=== PATIENT | male | born 1980 | race Caucasian/White ===

== ENCOUNTER 2023-07-09 18:43 | Emergency (ER) | payer OTHER, SELFPAY ==
[2023-07-09 18:52] VITALS: BP 124/85; PULSE 95; RESP 16; TEMP 36.3; O2SAT 99
--- NOTE | 2023-07-09 18:57 | ED.SKABFB ---
HPI - Skin/Abscess/Foreign Bdy General Chief complaint: Skin/Abscess/Foreign Body Stated complaint: RASH Time Seen by Provider: 07/09/23 18:57 Source: patient and RN notes reviewed Mode of arrival: ambulatory Limitations: no limitations History of Present Illness HPI narrative: 42-year-old male presents with concern for a itchy, painful rash. Reports he cleared trees couple days ago and then started noticing the rash on the back of his left thigh, it got larger and painful and spread to the right thigh, lower legs and face. Denies trouble breathing, swollen lips, swollen tongue complaint: rash Related Data Allergies Allergy/AdvReac Type Severity Reaction Status Date / Time No Known Allergies Allergy Verified 07/09/23 19:02 Review of Systems Review of Systems: CONSTITUTIONAL: Denies malaise, chills, sweats, or fever. EYES: Denies redness, or discharge. ENT: Denies rhinorrhea, congestion, swollen lips, swollen tongue CARDIOVASCULAR: Denies chest pain, palpitations, or edema. RESPIRATORY: Denies cough or dyspnea. GASTROINTESTINAL: Denies abdominal pain, nausea, vomiting SKIN: Reports rash itchy painful rash on the back of the legs, face MUSCULOSKELETAL: Denies joint pain or myalgia. NEUROLOGIC: Denies headache. All systems reviewed & are unremarkable except as noted in HPI and below PMFSH Comments At time of signature, agree with nursing past medical, surgical, social and family history. There is no relevant family history pertinent to the presenting complaint Exam Narrative: GENERAL: Well-appearing, well-nourished, and in no acute distress. HEAD: Normocephalic, atraumatic. EYES: PERRLA, conjunctivae clear, and EOMI. ENT: Mucous membranes moist. Oropharynx without edema, erythema or lesions. NECK: Supple. No lymphadenopathy CHEST: Clear to auscultation. No respiratory distress. HEART: Regular rate and rhythm. SKIN: Warm, dry. Large Raised Patches of erythema with satellite lesions noted to both posterior thighs, calves, small areas noted to the left face NEURO: Alert and oriented x3. PSYCH: Normal mood and affect Course Course Emergency Course: Patient is aware of diagnosis, understands and agrees to treatment plan. Anticipatory guidance given. Patient agrees to follow-up as directed and is aware of reasons to seek care at the emergency department. Portions of this record may have been created with voice recognition software Level of Care: Express Care Visit Vital Signs Vital signs: Vital Signs Temperature 97.4 F L 07/09/23 18:52 Pulse Rate 95 07/09/23 18:52 Respiratory Rate 16 07/09/23 18:52 Blood Pressure 124/85 07/09/23 18:52 Pulse Oximetry 99 07/09/23 18:52 Temperature 97.4 F L 07/09/23 18:52 Pulse Rate 95 07/09/23 18:52 Respiratory Rate 16 07/09/23 18:52 Blood Pressure 124/85 07/09/23 18:52 Pulse Oximetry 99 07/09/23 18:52 Reviewed. MDM - Skin/Abscess/Foreign Bdy MDM Narrative Medical decision making narrative: Does not appear at this time to be erythema multiforme, bullous, SJS, TEN; no evidence at this time to suggest RMSF, endocarditis or Lyme disease; patient looks well, nontoxic and is tolerating oral intake; no neurologic signs or symptoms; no headache, photophobia or neck pain; afebrile; appropriate for initial outpatient treatment; discussed the importance of follow-up, patient agrees; question, viral exanthema, contact dermatitis, allergic dermatitis, eczema, urticaria. No soft palate or uvula edema, no tongue, lip edema or other mucosal involvement, no respiratory compromise, no stridor, no wheezing, no wheezing, no history of syncope, no hypotension, no nausea, vomiting, or diarrhea. Instructed patient to go to nearest ER immediately for any worsening symptoms including but not limited to: fever, spreading rash, pain, sore throat, headache, dizziness, chest pain, trouble breathing, or any symptoms concerning to the patient. Critical Care Ti
[2023-07-09] MEDS: methylPREDNISolone SOD SUCC 125 MG VIAL IM (19:06)
== END 2023-07-09 19:09 | disposition home or self-care (01) ==
PROVIDERS: Emergency Provider Nurse Practitioner
DX: L25.9 Unspecified contact dermatitis, unspecified cause (principal)
CPT/HCPCS: 96372; 99213; G0463; J2919

== ENCOUNTER 2023-07-18 13:43 | Emergency (ER) | payer OTHER, SELFPAY ==
[2023-07-18 13:52] VITALS: BP 137/90; PULSE 102; RESP 16; TEMP 36.9; O2SAT 98
--- NOTE | 2023-07-18 14:03 | ED.SKABFB ---
HPI - Skin/Abscess/Foreign Bdy General Chief complaint: Skin/Abscess/Foreign Body Stated complaint: Rash on Eye Time Seen by Provider: 07/18/23 13:56 Source: patient, RN notes reviewed and old records reviewed Mode of arrival: ambulatory Limitations: no limitations History of Present Illness HPI narrative: Patient presents today complaining of poison alexa times 4-5 days. Patient was initially seen here at [facility] on 07/09/2023 and treated with 4 days of prednisone 40 mg. States symptoms initially improved, but worsened again. Symptoms have progressively worsened on the the bilateral legs and have become hot. Patient also reports swelling to the left upper eyelid this morning. States he typically needs a longer course of prednisone when he gets poison alexa. Related Data Allergies Allergy/AdvReac Type Severity Reaction Status Date / Time No Known Allergies Allergy Verified 07/18/23 13:51 Review of Systems Review of Systems: CONSTITUTIONAL: Denies body aches, fever, chills, or sweats. EYES: Denies visual changes, redness, or discharge. ENT: Denies rhinorrhea, congestion, sore throat, or otalgia. CARDIOVASCULAR: Denies chest pain, palpitations, or edema. RESPIRATORY: Denies cough or dyspnea. GASTROINTESTINAL: Denies abdominal pain, nausea, vomiting, or diarrhea. GENITOURINARY: Denies dysuria or hematuria. SKIN: + rash MUSCULOSKELETAL: Denies back pain, joint pain, or myalgia. NEUROLOGIC: Denies headache, numbness, tingling, or weakness. PSYCH: Denies depression or anxiety. PMFSH Comments At time of signature, I have reviewed and agree with nursing past medical, surgical, social and family history unless otherwise noted. Please see nursing chart for further information. There is no relevant family history pertinent to the presenting complaint Exam Narrative: GENERAL: Well-appearing, well-nourished, and in no acute distress. HEAD: Normocephalic, atraumatic. EYES: EOMI. No redness or drainage. Conjunctivae normal. Mild to moderate swelling of the left upper eyelid with mild erythema and flaking of the skin. ENT: Mucous membranes pink and moist. NECK: Normal AROM. CHEST: No respiratory distress. EXTREMITIES: Patient has large patches erythematous coalesced macular papular rash to the bilateral legs with increased warmth. No large vesicles or drainage. No obvious induration noted. Patient does have some swelling to the left lower leg SKIN: Capillary refill normal. Normal skin turgor. NEURO: No focal deficits. Alert and oriented x3. Gait steady. PSYCH: Normal affect. No signs of depression or anxiety. Course Course Level of Care: Express Care Visit Vital Signs Vital signs: Vital Signs Temperature 98.4 F 07/18/23 13:52 Pulse Rate 102 H 07/18/23 13:52 Respiratory Rate 16 07/18/23 13:52 Blood Pressure 137/90 07/18/23 13:52 Pulse Oximetry 98 07/18/23 13:52 Oxygen Delivery Room Air 07/18/23 13:52 Temperature 98.4 F 07/18/23 13:52 Pulse Rate 102 H 07/18/23 13:52 Respiratory Rate 16 07/18/23 13:52 Blood Pressure 137/90 07/18/23 13:52 Pulse Oximetry 98 07/18/23 13:52 Oxygen Delivery Room Air 07/18/23 13:52 Reviewed MDM - Skin/Abscess/Foreign Bdy MDM Narrative Medical decision making narrative: Patient was given an IM injection of decadron prior to discharge. Patient will be treated with a longer tapering dose of prednisone, starting tomorrow, as well as short course of Keflex to cover any developing cellulitis. Anticipatory guidance given. Differential Diagnosis Differential diagnosis: Likely abscess of skin or subcutaneous tissue, cellulitis, eczema, insect bites, impetigo and contact dermatitis Critical Care Time Critical Care Time Critical Care Time: No Discharge Plan Discharge Clinical Impression: Poison alexa dermatitis Patient Disposition: Home, Self-Care Condition: Stable Instructions: Antibiotic Form, Poison Alexa (ED) Addition
[2023-07-18] MEDS: dexAMETHasone SOD PHOS INJ 10 MG/ML 1 ML VIAL 12 MG IM (14:07)
== END 2023-07-18 14:20 | disposition home or self-care (01) ==
PROVIDERS: Emergency Provider Nurse Practitioner
DX: L23.7 Allergic contact dermatitis due to plants, except food (principal)
CPT/HCPCS: 96372; 99213; G0463; J1100

== ENCOUNTER 2024-02-29 09:25 | Day surgery (SDC) | payer OTHER, SELFPAY ==
[2024-01-11 07:37] VITALS: BMI 34.7
[2024-02-14 11:56] VITALS: BMI 34.5
--- NOTE | 2024-02-29 07:00 | P.PNAN_ITS ---
Anes - Initial Pre Proc Eval Procedure: Operation Date: 02/29/24 12:00 Proposed Procedures p Esophagogastroduodenoscopy - Jose Elizalde MD s Diagnostic Colonoscopy - Jose Elizalde MD Date/Time: 02/29/24 07:00 Surgeon: Jose Elizalde MD Pre Op Diagnosis: FM HX of Colon CA, Gerd w/o Esophagitis Patient Data Age: 43 Gender: M Height: 1.7 m Weight: 100 kg Allergies Allergy/AdvReac Type Severity Reaction Status Date / Time No Known Allergies Allergy Verified 02/29/24 10:42 Home Medications Medication Instructions Recorded Confirmed Type trazodone 50 mg tablet 50 mg PO QHS PRN insomnia #30 tabs 01/02/24 02/29/24 Rx propranolol 10 mg tablet See Rx Instructions .Route 01/03/24 02/29/24 Rx .COMPLEX #90 tabs atorvastatin 10 mg tablet 10 mg PO DAILY #30 tabs 01/04/24 02/29/24 Rx creatine monohydrate 5,000 mg oral 5,000 mg PO DAILY 02/14/24 02/29/24 History powder packet testosterone 100 mg/mL 100 mg IM 2XW 02/14/24 02/29/24 History intramuscular suspension semaglutide (weight loss) 0.5 0.5 mg subcut WEEKLY 02/29/24 02/29/24 History mg/0.5 mL subcutaneous pen injector Patient hx anesthesia problems: none Family hx anesthesia problems: none Results Review: All pre-operative results and documents have been reviewed as part of the pre- operative evaluation. [facility] Past Medical History Medical History (Updated 02/29/24 @ 07:00 by Ramesh Malave DO) GERD (gastroesophageal reflux disease) Hyperlipidemia Social History Social History Smoking status: Current every day smoker Tobacco type: e-cigarettes/vaping Alcohol intake: current Drinks per week: 5 Substance use type: does not use Living arrangements: alone Spiritual care concerns: No Anes - Eval Final PreProcedure Day of Procedure 02/29/24 07:00 Patient weight: obese Heart: regular rate and rhythm Lungs: clear to auscultation Airway: Mallampati scale class II Neurological: alert and oriented Last oral intake: >/= 8 hours ASA classification: II Emergent: no Anesthetic plan: proceed Anesthesia type and monitoring: general GIVS and standard monitoring Results Review: All pre-operative results and documents have been reviewed as part of the pre- operative evaluation. Informed Consent: The patient's anesthetic plan and its attendant risks and benefits were discussed with the patient/family/POA. Questions were solicited and answers provided to the satisfaction of the patient/family/POA.
[2024-02-29 10:43] VITALS: BP 127/89; PULSE 106; RESP 16; TEMP 37.5; O2SAT 99
[2024-02-29] MEDS: LACTATED RINGERS 1,000 ML 150 ML IV CONT (10:46)
--- NOTE | 2024-02-29 11:38 | P.HP_ITS ---
History of Present Illness History of Present Illness Consent: Risks, benefits, and alternatives have been discussed and questions answered. Patient agrees to proceed with procedure. Chief complaint: FM HX of Colon CA, Gerd w/o Esophagitis Narrative: Anish Young is a 43 year old male for colonoscopy today. Patient also referred for EGD. Patient has a 6 month history of side pain at the lower edge of rib cage, this is not related to diet. He sometimes has urgent bowel movements after eating. He has not tried antacids. Was requested because of family history of colon cancer in his mother. Patient apparently referred for GE reflux but denies any heartburn or reflux symptoms. He has not tried antacids. No symptoms seem to correlate with this. Review of records revealed genetic markers positive that sometimes are elevated with celiac disease. H owever also noted to be in 30% of normal patients. Patient has never had typical celiac panel. He has been on an intermittent it is being gluten several weeks. Patient is be and EGD but prefers to defer endoscopy until more definitive diagnosis can be established. Review of Systems Review of Systems: All systems reviewed & are unremarkable except as noted in HPI and below PMFSH Past Medical History Medical History (Updated 02/29/24 @ 11:42 by Jose Elizalde MD) GERD (gastroesophageal reflux disease) Hyperlipidemia Social History Social History Smoking status: Current every day smoker Tobacco type: e-cigarettes/vaping Alcohol intake: current Drinks per week: 5 Substance use type: does not use Living arrangements: alone Spiritual care concerns: No Meds Home Medications and Allergies Home Medications Medication Instructions Recorded Confirmed Type trazodone 50 mg tablet 50 mg PO QHS PRN insomnia #30 tabs 01/02/24 02/29/24 Rx propranolol 10 mg tablet See Rx Instructions .Route 01/03/24 02/29/24 Rx .COMPLEX #90 tabs atorvastatin 10 mg tablet 10 mg PO DAILY #30 tabs 01/04/24 02/29/24 Rx creatine monohydrate 5,000 mg oral 5,000 mg PO DAILY 02/14/24 02/29/24 History powder packet testosterone 100 mg/mL 100 mg IM 2XW 02/14/24 02/29/24 History intramuscular suspension semaglutide (weight loss) 0.5 0.5 mg subcut WEEKLY 02/29/24 02/29/24 History mg/0.5 mL subcutaneous pen injector Allergies Allergy/AdvReac Type Severity Reaction Status Date / Time No Known Allergies Allergy Verified 02/29/24 10:42 Vital Signs Vital Signs - 24 hr 02/29/24 10:43 Temperature 99.5 F Pulse Rate 106 H Respiratory Rate 16 Blood Pressure 127/89 Pulse Oximetry 99 Oxygen Delivery Room Air Exam Narrative: Physical exam reveals patient to be alert. Vital signs stable. HEENT exam is unremarkable. Patient is anicteric. Lungs are clear to auscultation and percussion. Heart is without murmur or extra sounds. Abdomen bowel sounds are present soft nontender with no organomegaly. Patient locates the pain to the lower edge of his ribcage. No tenderness or mass noted in this area. Extremities are without clubbing cyanosis or edema. Digital external rectal exam normal. Assessment and Plan Assessment and plan (1) Family history of colon cancer: Code(s): Z80.0 - Family history of malignant neoplasm of digestive organs Status: Acute Assessment and Plan: Patient's mother had colon cancer. Suggest screening colonoscopy at this time. Consider this at 5 year intervals. (2) Left sided abdominal pain: Code(s): R10.9 - Unspecified abdominal pain Status: Acute Assessment and Plan: Patient with side at the lower edge her ribcage. I cannot Exclude whether this is abdominal or chest pain. Patient has no specific symptoms of acid reflux. Consider a brief trial of antacids for this. There was some concern over celiac disease as genetic test was found to be positive all this is not diagnostic is frequently found normal patient's. I would recommend the patient be referred to the GI office. After eating in resuming a general normal diet celiac panel to include anti gliadin antibody and anti tTG antibody be performed. Follow-up EGD can be performed while on a regular diet, including gluten, because at that instance it would be more accurate to diagnose whether this truly is celiac disease. After a long discussion with the patient both he and I had decided to defer EGD , an d to follow-up in the GI office for further evaluation (3) Diarrhea: Code(s): R19.7 - Diarrhea, unspecified Status: Acute Assessment and Plan: Patient complains of diarrhea it urgently after eating. This is most suspicious for irritable bowel syndrome. As I am suggesting a regular diet we will ask patient to try fiber supplementation. Patient should follow-up in the GI office for further evaluation of left-sided abdominal pain and diarrhea. at that time, celiac disease can be more definitively be excluded, or included.
--- NOTE | 2024-02-29 12:48 | WPDANESPN ---
Anes - Prog Note Post-Op Date/Time: 02/29/24 12:48 Cardiovascular status: normal Respiratory status: normal Airway patency: baseline Mental status: baseline Post-Op hydration status: normal Vital Signs: Last Vital Signs Temp 37.5 C 02/29/24 10:43 Pulse 106 H 02/29/24 10:43 Resp 16 02/29/24 10:43 BP 127/89 02/29/24 10:43 Pulse Ox 99 02/29/24 10:43 O2 Del Method Room Air 02/29/24 10:43 Pain Score (VAS): 0 Post-procedural complaints: none Patient Feedback: Patient satisfied with anesthetic care. Other Findings: Patient vital signs back to baseline. Patient denies nausea and vomiting. Patient's pain under control. Patient OK for discharge.
[2024-02-29 13:07] VITALS: BP 133/88; PULSE 84; RESP 15; O2SAT 97
[2024-02-29 13:17] VITALS: BP 106/88; PULSE 97; RESP 17; O2SAT 99
[2024-02-29 13:27] VITALS: BP 124/96; PULSE 73; RESP 18; O2SAT 100
== END 2024-02-29 13:38 | disposition home or self-care (01) ==
PROVIDERS: PCP Family Medicine; Visit Provider Internal Medicine Gastroenterology
PROC: 0DJD8ZZ Inspection of Lower Intestinal Tract, Via Natural or Artificial Opening Endoscopic (ICD-10-PCS; CPT 45378; 2024-02-29 12:00)
DX: Z80.0 Family history of malignant neoplasm of digestive organs (principal); K64.8 Other hemorrhoids
CPT/HCPCS: 45378

== ENCOUNTER 2024-05-04 09:46 | Emergency (ER) | payer OTHER, SELFPAY ==
--- NOTE | ~2024-05-04 | CT_ITS ---
EXAMINATION: CT abdomen pelvis wo con DATE: 05/04/2024 12:43 INDICATION: Right sided renal stone presenting with right flank pain. TECHNIQUE: Computed tomography (CT) of the abdomen and pelvis was performed without intravenous contr ast. Automated exposure control and iterative reconstruction technique were employed. The dose-length product was 596.86 mGy-cm. COMPARISON: None FINDINGS: Lung bases are clear. Heart size is normal. No pericardial or pleural effusion. Liver, gallbladder, s pleen, pancreas, bilateral adrenal glands are normal. One-2 mm stone at the right ureterovesicular ju nction. Bilateral kidneys and ureters are otherwise unremarkable with no other urolithiasis or hydron ephrosis. Bladder is decompressed. Bowels including the appendix are normal. No free intraperitoneal gas or fluid. No pathologically enlarged abdominal or pelvic lymphadenopathy. Minimal to mild scatter ed degenerative skeletal changes in the spine and pelvis. IMPRESSION: 1. Nonobstructing 1-2 mm stone at the right ureterovesicular junction. Reviewed, dictated and finalized at location B. SSEMBLY ASSEMBLER
[2024-05-04 10:03] VITALS: BP 147/100; PULSE 86; RESP 14; TEMP 36.5; O2SAT 100
--- OUTSIDE RECORDS SUMMARY | 2024-05-04 10:32 | XMS_ITS | Clinical Summary ---
Author Organization [facility] [id number] [place] Address [address] [place] [id number] Care Team Providers Care Assistant Project Manager Name Role Phone Jose Alvarado DO Primary Care Provider Allergies No known active allergies Medications propranoloL (INDERAL) 10 mg tablet TAKE 1-2 TABLETS BY MOUTH 1 HOUR BEFORE EVENT NEEDED. MAX 2 TABLETS PER DAY. 4 Active atorvastatin (LIPITOR) 10 mg tablet 4 Active metroNIDAZOLE (FLAGYL) 500 mg tablet Take 1 tablet (500 mg total) by mouth every 12 (twelve) hours for 7 days 4 Active sodium, potassium & mag sulfates (SUPREP BOWEL KIT) 17.5-3.13-1.6 gram recon soln MIX AND DRINK DIRECTED PER THE WRITTEN INSTRUCTIONS THAT WERE MAILED TO YOU 4 Active tamsulosin (FLOMAX) 0.4 mg extended release capsuleIndicati ons:Right flank pain Take 1 capsule (0.4 mg total) by mouth daily 30 capsule 5 Active ketorolac (TORADOL) 10 mg tabletIndicatio ns:Right flank pain Take 1 tablet (10 mg total) by mouth every 6 (six) hours as needed for pain 20 tablet 5 Active Active Problems No known active problems Encounters Date Type Department Care Team Description 05/03/2024 4:15 PM OPERATIONS LEAD - 05/03/2024 11:59 PM OPERATIONS LEAD Hospital Encounter [address] [id number] Right flank pain Discharge Disposition: Discharge to home or self care 05/03/2024 3:45 PM OPERATIONS LEAD Office Visit [facility] at [address] [phone] Lisandra Figueroa, CD MIXER HELPER Right flank pain (Primary Dx) from Last 3 Months Social History Tobacco Use Types Packs/Day Years Used Date Smoking Tobacco: Never Assessed Sex and Gender Information Value Date Recorded Sex Assigned at Not on file Legal Sex Male 2:30 PM CDT Gender Identity Not on file Sexual Orientation Not on file Last Filed Vital Signs Vital Sign Reading Time Taken Comments Blood Pressure 139/96 05/03/2024 3:26 PM OPERATIONS LEAD Pulse 87 05/03/2024 3:26 PM OPERATIONS LEAD Temperature 36.9 C (98.5 F) 05/03/2024 3:26 PM OPERATIONS LEAD Respiratory Rate 16 05/03/2024 3:26 PM OPERATIONS LEAD Oxygen Saturation 96% 05/03/2024 3:26 PM OPERATIONS LEAD Inhaled Oxygen Concentration - - Weight 101.2 kg (223 lb) 05/03/2024 3:26 PM OPERATIONS LEAD Height 170.2 cm (5' 7 ) 05/03/2024 3:26 PM OPERATIONS LEAD Body Mass Index 34.93 05/03/2024 3:26 PM OPERATIONS LEAD Plan of Treatment Health Maintenance Due Date Last Done Comments Depression Screening 1981 Hepatitis C Screening 1981 DTaP/Tdap/Td Vaccine (1 - Tdap) 1992 Varicella Vaccines (1 of 2 - 13+ 2-dose series) 1994 Hepatitis B Screening 09/09/1999 Regular Well Visit/Exam 18-64 09/09/1999 Influenza Vaccine (#1) 2023 HPV Vaccines Aged Out No longer eligi ble based on patient's age to complete this topic Pneumococcal vaccine <65 Aged Out No longer eligible based on patient's age to complete this topic Procedures Procedure Name Priority Date/Time Associated Diagnosis Comments POCT URINALYSIS DIPSTICK Routine 05/03/2024 3:47 PM OPERATIONS LEAD Right flank pain from Last 3 Months Results * (ABNORMAL) POCT urinalysis dipstick (05/03/2024 3:47 PM OPERATIONS LEAD) Color, Urine, POC Yellow Clarity, ur, POC Clear Clear Glucose, ur, POC 100.(A) Negative MG/DL Bilirubin, ur, POC Small Negative, Small, Moderate, Large Ketones, ur, POC Negative Negative Specific [place], POC 1.030 1.003 - 1.030 Blood, ur, POC Large(A) Negative pH, ur, POC 5.5 5.0 - 8.0 Protein, ur, POC 100.(A) Negative Urobilinogen, urine, POC 0.2 0.2 - 1.0 mg/dL Nitrite, ur, POC Negative Negative Leukocytes, ur, POC Negative Negative Lot Number 0 Urine 05/03/2024 3:47 PM OPERATIONS LEAD Lisandra Figueroa CD MIXER HELPER POINT OF CARE TEST ORDERAB LES Final Result from Last 3 Months Insurance [facility] Care Teams Assistant Project Manager Relationship Specialty Start Date End Date Jose Alvarado DO [address] [place] [id number] PCP - General Family Medicine 05/03/24
--- OUTSIDE RECORDS SUMMARY | 2024-05-04 10:32 | XMS_ITS | Encounter Summary ---
Author Organization [facility] Address [address] [place] [id number] Care Team Providers Care Production Supply Equipment Tender Name Role Phone Jose Alvarado DO Primary Care Provider Encounter Details Date Type Department Care Team (Latest Contact Info) Description 05/03/2024 4:15 PM ARCHITECTURAL ENGINEERING TEACHER - 05/03/2024 11:59 PM ARCHITECTURAL ENGINEERING TEACHER Hospital Encounter [facility] [id number] [place] [id number] Right flank pain Discharge Disposition: Discharge to home or self care Social History Tobacco Use Types Packs/Day Years Used Date Smoking Tobacco: Never Assessed Sex and Gender Information Value Date Recorded Sex Assigned at Not on file Legal Sex Male 2:30 PM CDT Gender Identity Not on file Sexual Orientation Not on file documented as of this encounter Medications at Time of Discharge atorvastatin (LIPITOR) 10 mg tablet 03/23/2024 ketorolac (TORADOL) 10 mg tabletIndication s:Right flank pain Take 1 tablet (10 mg total) by mouth every 6 (six) hours as needed for pain 20 tablet 05/03/2024 metroNIDAZOLE (FLAGYL) 500 mg tablet Take 1 tablet (500 mg total) by mouth every 12 (twelve) hours for 7 days 02/01/2024 propranoloL (INDERAL) 10 mg tablet TAKE 1-2 TABLETS BY MOUTH 1 HOUR BEFORE EVENT NEEDED. MAX 2 TABLETS PER DAY. 09/10/2023 sodium, potassium & mag sulfates (SUPREP BOWEL KIT) 17.5-3.13-1.6 gram recon soln MIX AND DRINK DIRECTED PER THE WRITTEN INSTRUCTIONS THAT WERE MAILED TO YOU 02/04/2024 tamsulosin (FLOMAX) 0.4 mg extended release capsuleIndicatio ns:Right flank pain Take 1 capsule (0.4 mg total) by mouth daily 30 capsule 05/03/2024 documented as of this encounter Discharge Disposition Disposition Code Departure Means Destination Discharge to home or self care documented in this encounter Plan of Treatment Pending Results Name Type Priority Associated Diagnoses Date /Time Urine culture Urine, clean voided Microbiology Routine Right flank pain 05/03/2024 4:16 PM ARCHITECTURAL ENGINEERING TEACHER Scheduled Orders Name Type Priority Associated Diagnoses Orde r Schedule Urine culture Urine, clean voided Microbiology Routine Right flank pain Once for 1 Occurrences starting 05/03/2024 until 05/03/2024 documented as of this encounter Visit Diagnoses Diagnosis Right flank pain Abdominal pain, unspecified site documented in this encounter Care Teams Production Supply Equipment Tender Relationship Specialty Start Date End Date Jose Alvarado DO [address] [place] [id number] PCP - General Family Medicine 05/03/24 documented as of this encounter
--- OUTSIDE RECORDS SUMMARY | 2024-05-04 10:32 | XMS_ITS | Referral Summary ---
Author Organization [address] [address] Care Team Providers Care Regulatory Compliance Engineer Name Role Phone Jose Alvarado DO Primary Care Provider Encounters Date Type Department Care Team Description 05/03/2024 4:15 PM TELETYPESETTER OPERATOR - 05/03/2024 11:59 PM TELETYPESETTER OPERATOR Hospital Encounter [address] [address] Right flank pain Discharge Disposition: Discharge to home or self care 05/03/2024 3:45 PM TELETYPESETTER OPERATOR Office Visit [facility] Care at [address] [address] Lisandra Figueroa, LEILA Right flank pain (Primary Dx) from Last 3 Months Allergies No known active allergies Medications propranoloL [...] hours as needed for pain 20 tablet Active Active Problems No known active problems Social History Tobacco Use Types Packs/Day Years Used Date Smoking Tobacco: Never Assessed Sex and Gender Information Value Date Recorded Sex Assigned at Not on file Legal Sex Male 2:30 PM CDT Gender Identity Not on file Sexual Orientation Not on file Last Filed Vital Signs Vital Sign Reading Time Taken Comments Blood Pressure 139/96 05/03/2024 3:26 PM TELETYPESETTER OPERATOR Pulse 87 05/03/2024 3:26 PM TELETYPESETTER OPERATOR Temperature 36.9 C (98.5 F) 05/03/2024 3:26 PM TELETYPESETTER OPERATOR Respiratory Rate 16 05/03/2024 3:26 PM TELETYPESETTER OPERATOR Oxygen Saturation 96% 05/03/2024 3:26 PM TELETYPESETTER OPERATOR Inhaled Oxygen Concentration - - Weight 101.2 kg (223 lb) 05/03/2024 3:26 PM TELETYPESETTER OPERATOR Height 170.2 cm (5' 7 ) 05/03/2024 3:26 PM TELETYPESETTER OPERATOR Body Mass Index 34.93 05/03/2024 3:26 PM TELETYPESETTER OPERATOR Plan of Treatment Not on file Procedures Procedure Name Priority Date/Time Associated Diagnosis Comments POCT URINALYSIS DIPSTICK Routine 05/03/2024 3:47 PM TELETYPESETTER OPERATOR Right flank pain from Last 3 Months Results * (ABNORMAL) POCT urinalysis dipstick (05/03/2024 3:47 PM TELETYPESETTER OPERATOR) Color, Urine, POC Yellow Clarity, ur, POC Clear Clear Glucose, ur, POC 100.(A) Negative MG/DL Bilirubin, ur, POC Small Negative, Small, Moderate, Large Ketones, ur, POC Negative Negative Specific [place], POC 1.030 1.003 - 1.030 Blood, ur, POC Large(A) Negative pH, ur, POC 5.5 5.0 - 8.0 Protein, ur, POC 100.(A) Negative Urobilinogen, urine, POC 0.2 0.2 - 1.0 mg/dL Nitrite, ur, POC Negative Negative Leukocytes, ur, POC Negative Negative Lot Number 0 Urine 05/03/2024 3:47 PM TELETYPESETTER OPERATOR Lisandra Figueroa ELECTRONICS PRODUCTION SUPERVISOR POINT OF CARE TEST ORDERAB LES Final Result from Last 3 Months Insurance [employer] [facility] HMO Care Teams Regulatory Compliance Engineer Relationship Specialty Start Date End Date Jose Alvarado DO [address] [place] [id number] PCP - General Family Medicine 05/03/24
--- OUTSIDE RECORDS SUMMARY | 2024-05-04 10:32 | XMS_ITS | Encounter Summary ---
Author Organization [facility] Healthcare Address [address] [place] [address] Care Team Providers Care Supervisor Estimator And Drafter Name Role Phone Jose Alvarado DO Primary Care Provider [phone] Reason for Visit * Reason Comments Flank Pain Patient there for c/ o right kidney pain that started today with UTI sx Encounter Details Date Type Department Care Team (Late st Contact Info) Description 05/03/2024 3:45 PM SHUTTLE OPERATOR Office Visit [facility] at [place] [id number] [place] [address] Lisandra Figueroa, SEWER INSPECTOR [address] [place] [address] [address] [place] [address] Right flank pain (Primary Dx) Social History Tobacco Use Types Packs/Day Years Used Date Smoking Tobacco: Never Assessed Sex and Gender Information Value Date Recorded Sex Assigned at Not on file Legal Sex Male 2:30 PM CDT Gender Identity Not on file Sexual Orientation Not on file documented as of this encounter Last Filed Vital Signs Vital Sign Reading Time Taken Comments Blood Pressure 139/96 05/03/2024 3:26 PM SHUTTLE OPERATOR Pulse 87 05/03/2024 3:26 PM SHUTTLE OPERATOR Temperature 36.9 C (98.5 F) 05/03/2024 3:26 PM SHUTTLE OPERATOR Respiratory Rate 16 05/03/2024 3:26 PM SHUTTLE OPERATOR Oxygen Saturation 96% 05/03/2024 3:26 PM SHUTTLE OPERATOR Inhaled Oxygen Concentration - - Weight 101.2 kg (223 lb) 05/03/2024 3:26 PM SHUTTLE OPERATOR Height 170.2 cm (5' 7 ) 05/03/2024 3:26 PM SHUTTLE OPERATOR Body Mass Index 34.93 05/03/2024 3:26 PM SHUTTLE OPERATOR documented in this encounter Patient Instructions * Patient Instructions* Lisandra Figueroa NP - 05/03/2024 3:45 PM SHUTTLE OPERATOR If you have no improvement or worsening of your symptoms, please follow up with your Primary Care Provider, Convenient Care and or Emergency Room. I strive to provide you with EXCELLENT service. You may receive a survey after your visit today. If you cannot rate your experience as EXCELLENT, please let us know how we can improve and better meet your needs. Thank you for choosing [facility]! It was my pleasure to see you today, I hope you feel better soon! Lisandra Figueroa DRAG CAR RACER TLE OPERATOR * Attachments The following attachments cannot be sent through Care Everywhere. * Flank Pain (AfterCare(R) Instructions(ER/ED)) (Martiniquais) * Kidney Stones (AfterCare(R) Instructions(ER/ED)) (Martiniquais) documented in this encounter Ordered Prescriptions Prescription Sig Dispense Quantity Refills Last Filled Start Date End Date ketorolac (TORADOL) 10 mg tabletIndications: Right flank pain Take 1 tablet (10 mg total) by mouth every 6 (six) hours as needed for pain 20 tablet 05/03/2024 tamsulosin (FLOMAX) 0.4 mg extended release capsuleIndications :Right flank pain Take 1 capsule (0.4 mg total) by mouth daily 30 capsule 05/03/2024 documented in this encounter Plan of Treatment Pending Results Name Type Priority Associated Diagnoses Date /Time Urine culture Urine, clean voided Microbiology Routine Right flank pain 05/03/2024 4:16 PM SHUTTLE OPERATOR Scheduled Orders Name Type Priority Associated Diagnoses Orde r Schedule Urine culture Urine, clean voided Microbiology Routine Right flank pain Expected: 05/03/2024, Expires: 05/03/2025 documented as of this encounter Procedures Procedure Name Priority Date/Time Associated Diagnosis Comments POCT URINALYSIS DIPSTICK Routine 05/03/2024 3:47 PM SHUTTLE OPERATOR Right flank pain documented in this encounter Results * (ABNORMAL) POCT urinalysis dipstick (05/03/2024 3:47 PM SHUTTLE OPERATOR) Color, Urine, POC Yellow Clarity, ur, POC Clear Clear Glucose, ur, POC 100.(A) Negative MG/DL Bilirubin, ur, POC Small Negative, Small, Moderate, Large Ketones, ur, POC Negative Negative Specific [place], POC 1.030 1.003 - 1.030 Blood, ur, POC Large(A) Negative pH, ur, POC 5.5 5.0 - 8.0 Protein, ur, POC 100.(A) Negative Urobilinogen, urine, POC 0.2 0.2 - 1.0 mg/dL Nitrite, ur, POC Negative Negative Leukocytes, ur, POC Negative Negative Lot Number 0 Urine 05/03/2024 3:47 PM SHUTTLE OPERATOR Lisandra Figueroa SEWER INSPECTOR POINT OF CARE TEST ORDERAB LES Final Result documented in this encounter Visit Diagnoses Diagnosis Right flank pain- Primary Abdominal pain, unspecified site documented in this encounter Historical Medications * This list may reflect changes made after this encounter. sodium, potassium & mag sulfates (SUPREP BOWEL KIT) 17.5-3.13-1.6 gram recon soln MIX AND DRINK DIRECTED PER THE WRITTEN INSTRUCTIONS THAT WERE MAILED TO YOU 02/04/2024 metroNIDAZOLE (FLAGYL) 500 mg tablet Take 1 tablet (500 mg total) by mouth every 12 (twelve) hours for 7 days 02/01/2024 atorvastatin (LIPITOR) 10 mg tablet 03/23/2024 added in this encounter Care Teams Supervisor Estimator And Drafter Relationship Specialty Start Date End Date Jose Alvarado DO [address] [place] [id number] PCP - General Family Medicine 05/03/24 documented as of this encounter
[2024-05-04 11:32] LABS: Basophils Absolute Auto 0.1 K/mm3 (0.0-0.1); Basophils Percent Auto 1.1 % (0.2-1.2); Eosinophils Absolute Auto 0.5 K/mm3 (0-0.3); Eosinophils Percent Auto 9.1 % (0-4.4); Hematocrit 49.3 % (42.0-52.0); Hemoglobin 16.6 g/dL (14.0-18.0); Immature Granulocyte Absolute 0.02 K/mm3 (0.00-0.031); Immature Granulocyte Percent A 0.4 % (0-0.5); Lymphocytes Absolute Auto 1.64 K/mm3 (0.9-3.2); Lymphocytes Percent Auto 30.5 % (18.3-44.2); Mean Corpuscular HGB Conc 33.7 g/dl (32-36); Mean Corpuscular Hemoglobin 30.5 pg (26-34); Mean Corpuscular Volume 90.5 fl (80-100); Monocytes Absolute Auto 0.7 K/mm3 (0.1-0.6); Monocytes Percent Auto 13.4 % (2.6-8.5); Neutrophils Absolute Auto 2.4 K/mm3 (1.3-6.7); Neutrophils Percent Auto 45.5 % (45.5-73.1); Platelet Count Result 245 k/mm3 (150-375); Red Blood Count 5.45 M/mm3 (4.6-6.20); Red Cell Distribution Width 13.1 % (11.5-14.5); White Blood Count 5.4 K/mm3 (4.5-10.0)
[2024-05-04 11:48] LABS: Alanine Aminotransferase 51 U/L (6-50); Alkaline Phosphatase 66 U/L (38-126); Anion Gap 10 mmol/L (4-12); Aspartate Amino Transferase 35 U/L (17-59); Bilirubin,Total 0.7 mg/dL (0.2-1.3); Blood Urea Nitrogen 17 mg/dL (9-20); Calcium 8.6 mg/dL (8.4-10.2); Carbon Dioxide 25 mmol/L (22-30); Chloride 107 mmol/L (98-107); Estimated Glomerular Filt Rate > 60; Glucose 94 mg/dL (65-110); Potassium 4.2 mmol/L (3.4-5.0); Sodium 142 mmol/L (137-145)
[2024-05-04 11:53] VITALS: BP 138/92; PULSE 92; RESP 18; O2SAT 97
[2024-05-04 12:00] VITALS: O2SAT 98
[2024-05-04 12:01] VITALS: BP 141/102; PULSE 80; RESP 18; O2SAT 98
--- NOTE | 2024-05-04 12:21 | ED.MALEGU ---
HPI - Male Genitourinary General Chief complaint: Urogenital-Male Stated complaint: R flank pain Time Seen by Provider: 05/04/24 12:00 History of Present Illness HPI Narrative: 43-year-old otherwise healthy gentleman presenting to the emergency room with right-sided flank pain that began yesterday morning. He would urgent care and received Toradol and had a urine sample did show blood with suspected for a kidney stone. He went home with Toradol and had immediate improvement symptoms however had relapse throughout the night unresponsive to his Toradol. He had some leftover [place] at home without alleviated the pain. Endorses waves of pain in his right flank associated with nausea from the pain. No fever chills but does endorse some urinary symptoms including burning radiation but was told he did not have a urine infection yesterday. No history of kidney stones, no family history of kidney stones. No prostatic issues, no urogenital surgeries. Related Data Home Medications ?Medication ?Instructions ?Recorded ?Confirmed ?Last Taken ?Type creatine monohydrate 5,000 mg oral 5,000 mg PO DAILY 02/14/24 02/29/24 Unknown History powder packet testosterone 100 mg/mL 100 mg IM 2XW 02/14/24 02/29/24 Unknown History intramuscular suspension semaglutide (weight loss) 0.5 0.5 mg subcut WEEKLY 02/29/24 02/29/24 Unknown History mg/0.5 mL subcutaneous pen injector Allergies Allergy/AdvReac Type Severity Reaction Status Date / Time No Known Allergies Allergy Verified 02/29/24 10:42 Review of Systems Review of Systems: As reviewed above in HPI [facility] Past Medical History Medical History (Updated 05/04/24 @ 13:14 by Tye Prather MD) GERD (gastroesophageal reflux disease) Hyperlipidemia Social History Social History Smoking status: Current every day smoker Tobacco type: e-cigarettes/vaping Alcohol intake: current Drinks per week: 5 Substance use type: does not use Living arrangements: alone Spiritual care concerns: No Exam Narrative: GENERAL: [Well-appearing, well-nourished, and in no acute distress.] HEAD: [Normocephalic, atraumatic.] EYES: [PERRLA and EOMI.] ENT: Nares clear, no rhinorrhea or epistaxis. Mucous membranes moist. NECK: Supple. CHEST: [Clear to auscultation. No respiratory distress.] HEART: [Regular rate and rhythm]. No murmur heard. [Normal peripheral pulses.] ABDOMEN: [Soft, nondistended], [nontender], [No rigidity or guarding] EXTREMITIES: Normal range of motion. [No edema.] SKIN: Warm, dry, no rash. NEURO: [No focal deficits]. Alert and oriented [x3.] PSYCH: [Normal mood and affect.] Course Vital Signs Vital signs: Vital Signs Temperature 36.5 C 05/04/24 10:03 Pulse Rate 86 05/04/24 10:03 Respiratory Rate 14 05/04/24 10:03 Blood Pressure 147/100 H 05/04/24 10:03 Pulse Oximetry 100 05/04/24 10:03 Temperature 36.5 C 05/04/24 10:03 Pulse Rate 80 05/04/24 12:01 Respiratory Rate 18 05/04/24 12:01 Blood Pressure 141/102 H 05/04/24 12:01 Pulse Oximetry 98 05/04/24 12:01 MDM - Male Genitourinary MDM Narrative Medical decision making narrative: 43-year-old male presenting with right-sided flank pain associated some dysuria and nauseousness from the pain. Responded to Toradol last night at the urgent care. Received a urinalysis that showed blood but no infection. No family history of stones, no personal history kidney stones urogenital injuries or infections. He has a soft nontender nondistended abdomen but does appear slightly uncomfortable. He states he took a [place] before arriving in his feeling better presently. He is afebrile, blood pressure within normal limits, no tachycardia, fever or hypoxia. Suspension for kidney stone, less likely urinary tract infection or pyelonephritis. Low suspicion other intra-abdominal process such as gallbladder or hepatic issue. A CT scan without contrast was obtained, he was given a fluid bolus and Dilaudid as needed ordered. Laboratory studies including CBC CMP and urinalysis obtained. Patient was re-evaluated frequently. Patient was re-evaluated after dilaudid had complete symptomatic resolution. He has a 1-2 mm nonobstructing right-sided UVJ stone. No urinary tract infection. Normal electrolytes, normal renal function panel. Patient is safe and stable for discharge home at this time with outpatient urology follow-up. He will be given as needed oxycodone in addition to his Toradol and ibuprofen at home. He will be given Flomax and Zofran and return precautions. Patient verbalized understanding and was safe for discharge. Medical Records Attestation: I reviewed the patient's medical records. Lab Data Attestation: I reviewed the patient's lab results. 05/04/24 11:25 05/04/24 11:25 Labs: Lab Results 05/04/24 05/04/24 Range/Units 11:25 11:50 WBC 5.4 (4.5-10.0) K/mm3 RBC 5.45 (4.6-6.20) M/mm3 Hgb 16.6 (14.0-18.0) g/dL Hct 49.3 (42.0-52.0) % MCV 90.5 (80-100) fl MCH 30.5 (26-34) pg MCHC 33.7 (32-36) g/dl RDW 13.1 (11.5-14.5) % Plt Count 245 (150-375) k/mm3 MPV 10.0 (7.4-10.4) fl Immature Gran % (Auto) 0.4 (0-0.5) % Neut % (Auto) 45.5 (45.5-73.1) % Lymph % (Auto) 30.5 (18.3-44.2) % [place] % (Auto) 13.4 H (2.6-8.5) % Eos % (Auto) 9.1 H (0-4.4) % Baso % (Auto) 1.1 (0.2-1.2) % Lymph # (Auto) 1.64 (0.9-3.2) K/mm3 [place] # (Auto) 0.7 H (0.1-0.6) K/mm3 Eos # (Auto) 0.5 H (0-0.3) K/mm3 Baso # (Auto) 0.1 (0.0-0.1) K/mm3 Abs Immat Gran (auto) 0.02 (0.00-0.031) K/mm3 Absolute Neuts (auto) 2.4 (1.3-6.7) K/mm3 Absolute Nucleated RBC 0.000 (0.0-0.012) K/mm3 Nucleated RBC % 0.0 (0.0-0.2) % Sodium 142 (137-145) mmol/L Potassium 4.2 (3.4-5.0) mmol/L Chloride 107 (98-107) mmol/L Carbon Dioxide 25 (22-30) mmol/L Anion Gap 10 (4-12) mmol/L BUN 17 (9-20) mg/dL Creatinine 0.78 (0.7-1.3) mg/dL Estim Creat Clear Calc Not Reportable Estimated GFR > 60 (59 - ) Glucose 94 (65-110) mg/dL Calcium 8.6 (8.4-10.2) mg/dL Total Bilirubin 0.7 (0.2-1.3) mg/dL AST 35 (17-59) U/L ALT 51 H (6-50) U/L Alkaline Phosphatase 66 (38-126) U/L Total Protein 7.0 (6.3-8.2) g/dL Albumin 4.0 (3.5-5.1) g/dL Urine Color Dark yellow (Yellow) Urine Appearance Clear (Clear) Urine pH 5.5 (5.0-9.0) Ur Specific [place] 1.032 (1.001-1.035) Urine Protein Trace (Negative) mg/dL Urine Glucose (UA) Negative (Negative) mg/dL Urine Ketones Trace H (Negative) mg/dL Ur Blood (Man) Trace (Negative) Urine Nitrate Negative (Negative) Urine Bilirubin Negative (Negative) Urine Urobilinogen 1.0 (<2.0) mg/dL Add Ur Microanalysis Reviewed Leukocyte Esterase Rfl Negative (Negative) LUX/UL Urine RBC 11-20 H (0-2) /hpf Urine WBC 0-5 (0-3) /hpf Ur Squamous Epith Cells None seen (Few) /hpf Calcium Oxalate Crystal Present (None) /hpf Urine Bacteria None seen /hpf Urine Casts 3-5 Urine Mucus Present /lpf Imaging Data Attestation: I personally reviewed and interpreted this imaging study as follows: My impression: Impressions Abdomen/Pelvis CT 05/04/24 12:51 IMPRESSION: 1. Nonobstructing 1-2 mm stone at the right ureterovesicular junction. Discharge Plan Discharge Clinical Impression: Kidney stone on right side Patient Disposition: Home, Self-Care Condition: Stable Instructions: Antibiotic Form, Kidney Stones (ED), How to Strain Your Urine (ED) Additional Instructions: 1. Nonobstructing 1-2 mm stone at the right ureterovesicular junction. this kidney stone will almost certainly pass on its own but will help the with medications to help dilate the urinary system, pain control medications and nausea controlling medications. If the pain is unbearable despite the medications or having inability urinate or fevers or any other persistent or worsening symptoms please return to the emergency department otherwise follow-up with your regular doctor in the urologist we will refer you to. we will send you home with 10 mg oxycodone as needed. Take your Toradol and tylenol as background maintenance controlling medication and take this in addition if you have breakthrough pain. Patient Language: Romanian Prescriptions: New tamsulosin [Flomax] 0.4 mg capsule 0.4 mg PO DAILY Qty: 20 0RF ondansetron 4 mg tablet,disintegrating 4 mg PO Q8H PRN (Reason: nausea and vomiting) Qty: 10 0RF oxycodone 10 mg tablet 10 mg PO Q6H PRN (Reason: pain) Qty: 14 0RF No Action trazodone 50 mg tablet 50 mg PO QHS PRN (Reason: insomnia) Qty: 30 0RF Rx Instructions: Take 1 tablet at bedtime as needed for insomnia. propranolol 10 mg tablet See Rx Instructions .ROUTE .COMPLEX Qty: 90 0RF Dose Instruction: 10MG ORALLY ONCE NEEDED FOR ANXIETY; TAKE 1 TABLET NEEDED 30 TO 60 MINUTES PRIOR TO ANXIETY-PROVOKING SITUATION Rx Instructions: 10MG ORALLY ONCE NEEDED FOR ANXIETY; TAKE 1 TABLET NEEDED 30 TO 60 MINUTES PRIOR TO ANXIETY-PROVOKING SITUATION atorvastatin 10 mg tablet See Rx Instructions .ROUTE .COMPLEX Qty: 90 0RF Dose Instruction: TAKE 1 TABLET(10 MG) BY MOUTH DAILY Rx Instructions: TAKE 1 TABLET(10 MG) BY MOUTH DAILY testosterone 100 mg/mL Suspension 100 mg IM 2XW creatine monohydrate 5,000 mg Powder In Packet 5,000 mg PO DAILY semaglutide (weight loss) 0.5 mg/0.5 mL Pen Injector 0.5 mg SUBCUT WEEKLY Rx Instructions: administer weeks 5 through 8 of therapy Follow-up/Referrals: Tirso King MD [Physician] - 1 Week ( right-sided kidney stone. Referral for vasectomy.) Jose Alvarado DO [Primary Care Provider] - Time of Disposition: 13:16
[2024-05-04] MEDS: LACTATED RINGERS 1,000 ML 999 ML IV CONT (12:26)
[2024-05-04] MEDS: HYDROmorphone HCL INJ (*CRX) 1 MG/ML SYR 0.5 MG IV PUSH (12:27)
[2024-05-04 12:40] LABS: Add Urine Microscopic? YES; Appearance Urine Clear (Clear); Bacteria Urine None Seen /hpf; Bilirubin Urine Negative (Negative); Blood Urine Trace (Negative); Calcium Oxalate Crystals Urine Present /hpf; Color Urine Dark Yellow (Yellow); Glucose Urine UA Negative (Negative); Ketones Urine Trace mg/dL (Negative); Leukocyte Esterase Ur Negative LEU/UL (Negative); Mucus Urine Present /lpf; Need Manual Microscopic Reviewed; Nitrate Urine Negative (Negative); Protein Urine Trace mg/dL (Negative); Specific Grav Ur 1.032 (1.001-1.035); Squamous Epithelial Cell Urine None Seen /hpf (Few); WBC Urine 0-5 /hpf (0-3); pH Urine 5.5 (5.0-9.0)
--- OUTSIDE RECORDS SUMMARY | 2024-05-04 13:23 | XMS_ITS | Encounter Summary ---
Author Organization [facility] Healthcare Address [address] [place] [address] Care Team Providers Care Molded Goods Operator Name Role Phone Jose Alvarado DO Primary Care Provider [phone] Encounter Details Date Type Department Care Team (Latest Contact Info) Description 05/03/2024 4:15 PM HEARING THERAPIST - 05/03/2024 11:59 PM HEARING THERAPIST Hospital Encounter [facility] [address] [place] [address] Right flank pain Discharge Disposition: Discharge to [...] Routine Right flank pain 05/03/2024 4:16 PM HEARING THERAPIST Scheduled Orders Name Type Priority Associated Diagnoses Orde r Schedule Urine culture Urine, clean voided Microbiology Routine Right flank pain Once for 1 Occurrences starting 05/03/2024 until 05/03/2024 documented as of this encounter Visit Diagnoses Diagnosis Right flank pain Abdominal pain, unspecified site documented in this encounter Care Teams Molded Goods Operator Relationship Specialty Start Date End Date Jose Alvarado DO [address] [place] [address] PCP - General Family Medicine 05/03/24 documented as of this encounter
--- OUTSIDE RECORDS SUMMARY | 2024-05-04 13:23 | XMS_ITS | Encounter Summary ---
Author Organization [facility] Healthcare Address [address] [place] [address] Care Team Providers Care Network Cabler Name Role Phone Jose Alvarado DO Primary Care Provider [phone] Reason for Visit * Reason Comments Flank Pain Patient there for c/ o right kidney pain that started today with UTI sx Encounter Details Date Type Department Care Team (Late st Contact Info) Description 05/03/2024 3:45 PM PIN PUSHER Office Visit [facility] Medical Group Convenient Care at [place] [id number] [place] [address] Lisandra Figueroa, WATER/WASTEWATER PROJECT MANAGER [address] [place] [address] [address] [place] [address] Right flank pain (Primary Dx) [...] Comments Blood Pressure 139/96 05/03/2024 3:26 PM PIN PUSHER Pulse 87 05/03/2024 3:26 PM PIN PUSHER Temperature 36.9 C (98.5 F) 05/03/2024 3:26 PM PIN PUSHER Respiratory Rate 16 05/03/2024 3:26 PM PIN PUSHER Oxygen Saturation 96% 05/03/2024 3:26 PM PIN PUSHER Inhaled Oxygen Concentration - - Weight 101.2 kg (223 lb) 05/03/2024 3:26 PM PIN PUSHER Height 170.2 cm (5' 7 ) 05/03/2024 3:26 PM PIN PUSHER Body Mass Index 34.93 05/03/2024 3:26 PM PIN PUSHER documented in this encounter Patient Instructions * Patient Instructions* Lisandra Figueroa NP - 05/03/2024 3:45 PM PIN PUSHER If you have no improvement or worsening [...] meet your needs. Thank you for choosing [facility]! It was my pleasure to see you today, I hope you feel better soon! Lisandra Figueroa INFUSION RN PUSHER * Attachments The following attachments cannot be sent through Care Everywhere. * Flank Pain (AfterCare(R) Instructions(ER/ED)) ([place]ymraes) * Kidney Stones (AfterCare(R) Instructions(ER/ED)) ([place]ymraes) documented in this encounter Ordered Prescriptions Prescription [...] Routine Right flank pain 05/03/2024 4:16 PM PIN PUSHER Scheduled Orders Name Type Priority Associated Diagnoses Orde r Schedule Urine culture Urine, clean voided Microbiology Routine Right flank pain Expected: 05/03/2024, Expires: 05/03/2025 documented as of this encounter Procedures Procedure Name Priority Date/Time Associated Diagnosis Comments POCT URINALYSIS DIPSTICK Routine 05/03/2024 3:47 PM PIN PUSHER Right flank pain documented in this encounter Results * (ABNORMAL) POCT urinalysis dipstick (05/03/2024 3:47 PM PIN PUSHER) Color, Urine, POC Yellow Clarity, ur, POC Clear Clear Glucose, ur, POC 100.(A) Negative MG/DL Bilirubin, ur, POC Small Negative, Small, Moderate, Large Ketones, ur, POC Negative Negative Specific [place], POC 1.030 1.003 - 1.030 Blood, ur, POC Large(A) Negative pH, ur, POC 5.5 5.0 - 8.0 Protein, ur, POC 100.(A) Negative Urobilinogen, urine, POC 0.2 0.2 - 1.0 mg/dL Nitrite, ur, POC Negative Negative Leukocytes, ur, POC Negative Negative Lot Number 0 Urine 05/03/2024 3:47 PM PIN PUSHER Lisandra Figueroa WATER/WASTEWATER PROJECT MANAGER POINT OF CARE TEST ORDERAB LES Final [...] 03/23/2024 added in this encounter Care Teams Network Cabler Relationship Specialty Start Date End Date Jose Alvarado DO [address] [place] [id number] PCP - General Family Medicine 05/03/24 documented as of this encounter
--- OUTSIDE RECORDS SUMMARY | 2024-05-04 13:23 | XMS_ITS | Clinical Summary ---
Author Organization [facility] [facility] [address] [facility] Address [address] [place] [id number] Care Team Providers Care Framing Carpenter Name Role Phone Jose Alvarado DO Primary [...] Department Care Team Description 05/03/2024 4:15 PM PIPE COVERER - 05/03/2024 11:59 PM PIPE COVERER Hospital Encounter [address] [address] Right flank pain Discharge Disposition: Discharge to home or self care 05/03/2024 3:45 PM PIPE COVERER Office Visit [facility] Medical Group [facility] Care at [address] [address] Lisandra Figueroa, FOAM MACHINE OPERATOR Right flank pain (Primary Dx) from Last [...] Comments Blood Pressure 139/96 05/03/2024 3:26 PM PIPE COVERER Pulse 87 05/03/2024 3:26 PM PIPE COVERER Temperature 36.9 C (98.5 F) 05/03/2024 3:26 PM PIPE COVERER Respiratory Rate 16 05/03/2024 3:26 PM PIPE COVERER Oxygen Saturation 96% 05/03/2024 3:26 PM PIPE COVERER Inhaled Oxygen Concentration - - Weight 101.2 kg (223 lb) 05/03/2024 3:26 PM PIPE COVERER Height 170.2 cm (5' 7 ) 05/03/2024 3:26 PM PIPE COVERER Body Mass Index 34.93 05/03/2024 3:26 PM PIPE COVERER Plan of Treatment Health Maintenance Due Date [...] POCT URINALYSIS DIPSTICK Routine 05/03/2024 3:47 PM PIPE COVERER Right flank pain from Last 3 Months Results * (ABNORMAL) POCT urinalysis dipstick (05/03/2024 3:47 PM PIPE COVERER) Color, Urine, POC Yellow Clarity, ur, POC Clear Clear Glucose, ur, POC 100.(A) Negative MG/DL Bilirubin, ur, POC Small Negative, Small, Moderate, Large Ketones, ur, POC Negative Negative Specific [place], POC 1.030 1.003 - 1.030 Blood, ur, POC Large(A) Negative pH, ur, POC 5.5 5.0 - 8.0 Protein, ur, POC 100.(A) Negative Urobilinogen, urine, POC 0.2 0.2 - 1.0 mg/dL Nitrite, ur, POC Negative Negative Leukocytes, ur, POC Negative Negative Lot Number 0 Urine 05/03/2024 3:47 PM PIPE COVERER Lisandra Figueroa FOAM MACHINE OPERATOR POINT OF CARE TEST ORDERAB LES Final Result from Last 3 Months Insurance [facility] Care Teams Framing Carpenter Relationship Specialty Start Date End Date Jose Alvarado DO [address] [place] [id number] PCP - General Family Medicine 05/03/24
--- OUTSIDE RECORDS SUMMARY | 2024-05-04 13:23 | XMS_ITS | Referral Summary ---
Author Organization [address] [address] Care Team Providers Care Criminal Intelligence Analyst Name Role Phone Jose Alvarado DO Primary Care Provider [phone] Encounters Date Type Department Care Team Description 05/03/2024 4:15 PM REVERSE LOGISTICS ANALYST - 05/03/2024 11:59 PM REVERSE LOGISTICS ANALYST Hospital Encounter [address] [id number] Right flank pain Discharge Disposition: Discharge to home or self care 05/03/2024 3:45 PM REVERSE LOGISTICS ANALYST Office Visit [facility] at [address] [address] Lisandra Figueroa, LEILA Right flank [...] Comments Blood Pressure 139/96 05/03/2024 3:26 PM REVERSE LOGISTICS ANALYST Pulse 87 05/03/2024 3:26 PM REVERSE LOGISTICS ANALYST Temperature 36.9 C (98.5 F) 05/03/2024 3:26 PM REVERSE LOGISTICS ANALYST Respiratory Rate 16 05/03/2024 3:26 PM REVERSE LOGISTICS ANALYST Oxygen Saturation 96% 05/03/2024 3:26 PM REVERSE LOGISTICS ANALYST Inhaled Oxygen Concentration - - Weight 101.2 kg (223 lb) 05/03/2024 3:26 PM REVERSE LOGISTICS ANALYST Height 170.2 cm (5' 7 ) 05/03/2024 3:26 PM REVERSE LOGISTICS ANALYST Body Mass Index 34.93 05/03/2024 3:26 PM REVERSE LOGISTICS ANALYST Plan of Treatment Not on file Procedures Procedure Name Priority Date/Time Associated Diagnosis Comments POCT URINALYSIS DIPSTICK Routine 05/03/2024 3:47 PM REVERSE LOGISTICS ANALYST Right flank pain from Last 3 Months Results * (ABNORMAL) POCT urinalysis dipstick (05/03/2024 3:47 PM REVERSE LOGISTICS ANALYST) Color, Urine, POC Yellow Clarity, ur, POC Clear Clear Glucose, ur, POC 100.(A) Negative MG/DL Bilirubin, ur, POC Small Negative, Small, Moderate, Large Ketones, ur, POC Negative Negative Specific [place], POC 1.030 1.003 - 1.030 Blood, ur, POC Large(A) Negative pH, ur, POC 5.5 5.0 - 8.0 Protein, ur, POC 100.(A) Negative Urobilinogen, urine, POC 0.2 0.2 - 1.0 mg/dL Nitrite, ur, POC Negative Negative Leukocytes, ur, POC Negative Negative Lot Number 0 Urine 05/03/2024 3:47 PM REVERSE LOGISTICS ANALYST Lisandra Figueroa BAND SEWER POINT OF CARE TEST ORDERAB LES Final Result from Last 3 Months Insurance [employer] [facility] HMO Care Teams Criminal Intelligence Analyst Relationship Specialty Start Date End Date Jose Alvarado DO [address] [place] [id number] PCP - General Family Medicine 05/03/24
[2024-05-04 13:37] VITALS: BP 134/84; PULSE 80; RESP 16; O2SAT 99
== END 2024-05-04 13:38 | disposition home or self-care (01) ==
LOC: ANHED 13:21
PROVIDERS: Emergency Medicine; Emergency Provider Student in an Organized Health Care Education/Training Program; PCP Family Medicine
DX: N20.1 Calculus of ureter (principal); E78.5 Hyperlipidemia, unspecified; K21.9 Gastro-esophageal reflux disease without esophagitis; F17.290 Nicotine dependence, other tobacco product, uncomplicated
CPT/HCPCS: 36415; 74176; 80053; 81001; 85025; 96361; 96374; 99284; J1171; J7120

== ENCOUNTER 2024-12-10 12:59 | Emergency (ER) | payer OTHER, SELFPAY ==
--- NOTE | ~2024-12-10 | XR_ITS ---
Examination: XR chest 2V Clinical History: cough, chest tightness, dyspnea, heaviness x 3 days Comparison: None Technique: PA and Lateral Findings: Cardiomediastinal silhouette normal size and configuration. Lungs clear. No acute bony abnormality. IMPRESSION: 1. No acute cardiopulmonary findings. Reviewed, dictated and finalized at location R.
[2024-12-10 13:07] VITALS: BP 125/93; PULSE 95; RESP 16; TEMP 36.8; O2SAT 100
--- NOTE | 2024-12-10 13:49 | ECG_ITS ---
Test Date: 2024-12-10 14:04:40 Measurements Intervals [place] Rate: 87 P: 44 MN: 153 QRS: 39 QRSD: 99 T: 9 QT: 316 QTc: 381 Interpretive Statements SINUS RHYTHM WITH SINUS ARRHYTHMIA NORMAL ECG No previous ECG available for comparison Electronically Signed On 12-11-2024 07:58:09 CDT by Sergio Marcano M.D.
--- NOTE | 2024-12-10 13:58 | ED_ITS ---
HPI - Chest Pain General Chief Complaint: Upper Respiratory Infection Stated Complaint: SOB/Tightness In Chest Time Seen by Provider: 12/10/24 13:45 Source: patient and RN notes reviewed Mode of arrival: ambulatory Limitations: no limitations History of Present Illness HPI narrative: 44 year old male presents Express Care complaining of chest tightness and shortness of breath over the last week. Patient says the chest tightness is worse when he takes a deep breath. Patient also reports a cough. Patient has a history of hyperlipidemia and vapes, he denies any smoking cigarettes or tobacco. Patient denies any chest pain with exertion or worsening chest pain with exertion, shortness of breath rest, leg swelling, fevers, body aches, chills, nausea, vomiting, diarrhea, jaw pain, left arm pain, or any other symptoms. Patient also wants his urine recheck for hematuria because he was told he has blood in his urine but cannot get into a urologist for further evaluation. Patient reports mild stinging with urination. Related Data Home Medications ?Medication ?Instructions ?Recorded ?Confirmed ?Last Taken ?Type creatine monohydrate 5,000 mg oral 5,000 mg PO DAILY 1 04/15/23 02/29/24 Unknown History powder packet testosterone 100 mg/mL 100 mg IM 2XW 02/14/2402/28 Unknown History intramuscular suspension semaglutide (weight loss) 0.5 0.5 mg subcut WEEKLY 07/1902/29/24 Unknown History mg/0.5 mL subcutaneous pen injector Allergies Allergy/AdvReac Type Severity Reaction Status Date / Time No Known Allergies Allergy Verified 12/10/24 13:21 Review of Systems Review of Systems: CONSTITUTIONAL: Denies fever, chills, or sweats. EYES: Denies visual changes, redness, or discharge. ENT: Denies rhinorrhea, congestion, sore throat, or otalgia. CARDIOVASCULAR: Denies chest pain, palpitations, or edema. RESPIRATORY: Denies cough or dyspnea. GASTROINTESTINAL: Denies abdominal pain, nausea, vomiting, or diarrhea. GENITOURINARY: Denies dysuria or hematuria. SKIN: Denies rash or itching. MUSCULOSKELETAL: Denies back pain, joint pain, or myalgia. NEUROLOGIC: Denies headache, numbness, or weakness. PSYCHIATRIC: Denies anxiety or depression. All other systems reviewed are negative, except as documented in HPI. [facility] Past Medical History Medical History GERD (gastroesophageal reflux disease) Hyperlipidemia Social History Social History Smoking status: Current every day smoker Tobacco type: e-cigarettes/vaping Alcohol intake: current Drinks per week: 5 Substance use type: does not use Living arrangements: alone Spiritual care concerns: No Comments At the time of my signature, I reviewed and agree with the nursing past medical, surgical, social, and family history. There is no relevant family history pertinent to the patient complaint. Exam Narrative: GENERAL: This is a well-nourished, well-developed adult, in no apparent distress. They are non ill-appearing, nontoxic appearing. HEAD: normocephalic, atraumatic. EYES: Sclera clear/white. Conjunctiva normal. Vision is grossly intact. Extraocular movements intact EARS: External ears normal, auditory canals clear and without drainage, TMs normal without perforation. Hearing grossly intact. NOSE: External nose normal with no obvious nasal discharge, nasal turbinates erythematous, no rhinorrhea. THROAT: Mucous membranes moist, posterior pharynx boggy without erythema or swelling. Uvula midline. Postnasal drip present. NECK: Neck supple, non-tender without lymphadenopathy, masses or thyromegaly. CARDIOVASCULAR: Regular rate and rhythm without murmurs, gallops, or rubs. RESPIRATORY: Diminished throughout. Breath sounds equal bilaterally. No wheezes, rales, or rhonchi. SKIN: warm, Dry, intact with no suspicious lesions or rash, good texture and turgor. NEURO: awake, alert, and oriented to person, place and time. There were no obvious focal neurologic abnormalities. EXTREMITIES: No joint tenderness, effusion, or edema noted. BACK: Nontender without deformity. No CVA tenderness. Course Course Emergency Course: Portions of this record may have been created with voice recognition software Level of Care: Express Care Visit Vital Signs Vital signs: Vital Signs Temperature 98.2 F 12/10/24 13:07 Pulse Rate 95 12/10/24 13:07 Respiratory Rate 16 12/10/24 13:07 Blood Pressure 125/93 H 12/10/24 13:07 Pulse Oximetry 100 12/10/24 13:07 Temperature 98.2 F 12/10/24 13:07 Pulse Rate 95 12/10/24 13:07 Respiratory Rate 16 12/10/24 13:07 Blood Pressure 125/93 H 12/10/24 13:07 Pulse Oximetry 100 12/10/24 13:07 Oxygen Delivery Room Air 12/10/24 13:24 Reviewed MDM - Chest Pain MDM Narrative Medical decision making narrative: EKG shows normal sinus rhythm without ischemic findings. Wells criteria PE 0. Chest X-ray is negative for any acute cardiopulmonary findings. [place] heart score 0. Chest tightness worse with deep breath. Chest pain is reproducible. Low suspicion for CAD. Urine dipstick shows 1+ ketones otherwise unremarkable urine. No hematuria present. Urine cultures pending. Likely a purulent bronchitis. Given like the symptoms will go ahead and treat with Augmentin along with Medrol Dosepak this patient has a history of vaping. Discussed physical exam findings. Advised supportive measures and signs/symptoms to go to the ER. Pt is appropriate for outpt treatment and f/u. Differential Diagnosis Differential diagnosis: Likely pneumothorax, stable angina, unstable angina pectoris, st elevation myocardial infarction, costochondritis, chest pain and other (Pneumonia, bronchitis, sinusitis) Lab Data Attestation: I reviewed the patient's lab results. Labs: Lab Results 12/10/24 Range/Units 13:54 POC Urine Color Yellow POC Urine Clarity Clear POC Urine pH 6.0 POC Ur Specif [place] 1.025 POC Urine Protein Negative (Negative) POC Ur Glucose (UA) Negative (Negative) POC Urine Ketones Trace (Negative) POC Urine Blood Negative (Negative) POC Urine Nitrite Negative (Negative) POC Urine Bilirubin Negative (Negative) POC Urine Urobilinogen 0.2 POC U Leukocyte Esteras Negative (Negative) ECG Data EKG #1: Attestation: I personally reviewed and interpreted this ECG as follows: ECG completion date: 12/10/24 ECG completion time: 14:04 EKG Interpretation: normal rate, sinus rhythm, no ectopy, no ST changes, normal QRS, normal QT and NL axis Critical Care Time Critical Care Time Critical Care Time: No Discharge Plan Discharge Clinical Impression: Acute purulent bronchitis Patient Disposition: Home Condition: Stable Instructions: Antibiotic Form Additional Instructions: Your chest x-ray is negative for any acute cardiopulmonary findings. EKG is normal sinus rhythm. Take Augmentin as directed. Finish the antibiotic completely even if you start to feel better. Take Medrol Dosepak as directed. You may take ibuprofen 600 mg to 800 mg every 6-8 hours. Do not exceed more than 800 mg of ibuprofen per dose. Do not exceed more than 3200 mg ibuprofen in a day. You may take up to 1000 mg Tylenol every 6-8 hours. Do not exceed 1000 mg per dose, do exceed more than 4000 mg of Tylenol in a day. Urine dipstick was negative for any infection or any evidence of blood. A urine culture will be sent off and if it is positive with bacteria you will be contacted. Please follow-up with urology for further evaluation of your microscopic hematuria. Follow-up with PCP in 3-5 days. Go to ER if he develop worsening chest pain, difficulty breathing, shortness of breath, nausea, vomiting, left arm pain, jaw pain, fevers, or any serious concerns. Patient Language: Cameroonian Prescriptions: New methylprednisolone 4 mg tablets,dose pack See Rx Instructions .ROUTE .COMPLEX Qty: 21 0RF Rx Instructions: for 6 days amoxicillin-pot clavulanate 875-125 mg tablet 1 tablet PO Q12H 7 Days Qty: 14 0RF No Action trazodone 50 mg tablet 50 mg PO QHS PRN (Reason: insomnia) Qty: 30 0RF Rx Instructions: Take 1 tablet at bedtime as needed for insomnia. tamsulosin [Flomax] 0.4 mg capsule 0.4 mg PO DAILY Qty: 20 0RF ondansetron 4 mg tablet,disintegrating 4 mg PO Q8H PRN (Reason: nausea and vomiting) Qty: 10 0RF propranolol 10 mg tablet See Rx Instructions .ROUTE .COMPLEX Qty: 90 0RF Dose Instruction: 10MG ORALLY ONCE NEEDED FOR ANXIETY; TAKE 1 TABLET NEEDED 30 TO 60 MINUTES PRIOR TO ANXIETY-PROVOKING SITUATION Rx Instructions: 10MG ORALLY ONCE NEEDED FOR ANXIETY; TAKE 1 TABLET NEEDED 30 TO 60 MINUTES PRIOR TO ANXIETY-PROVOKING SITUATION oxycodone 5 mg tablet 5 mg PO Q6H PRN (Reason: pain, severe) Qty: 10 0RF atorvastatin 10 mg tablet See Rx Instructions .ROUTE .COMPLEX Qty: 90 0RF Dose Instruction: TAKE 1 TABLET(10 MG) BY MOUTH DAILY Rx Instructions: TAKE 1 TABLET(10 MG) BY MOUTH DAILY testosterone 100 mg/mL Suspension 100 mg IM 2XW creatine monohydrate 5,000 mg Powder In Packet 5,000 mg PO DAILY semaglutide (weight loss) 0.5 mg/0.5 mL Pen Injector 0.5 mg SUBCUT WEEKLY Rx Instructions: administer weeks 5 through 8 of therapy Follow-up/Referrals: Jose Alvarado DO [Primary Care Provider, [facility]] Time of Disposition: 14:44
[2024-12-10 14:03] LABS: EDUAAPPEAR Clear; EDUABILI Negative (Negative); EDUABLOOD Negative (Negative); EDUACOLOR1 Yellow; EDUAGLUCOSE Negative (Negative); EDUAKETONE Trace (Negative); EDUALEUKO Negative (Negative); EDUANITRATE Negative (Negative); EDUAPH 6.0; EDUAPROTEIN Negative (Negative); EDUASPGRAVITY 1.025; EDUAUROBILI 0.2
== END 2024-12-10 14:49 | disposition home or self-care (01) ==
PROVIDERS: PCP Family Medicine
DX: J20.9 Acute bronchitis, unspecified (principal); F17.290 Nicotine dependence, other tobacco product, uncomplicated; E78.5 Hyperlipidemia, unspecified; K21.9 Gastro-esophageal reflux disease without esophagitis
CPT/HCPCS: 71046; 81003; 87086; 93005; 99213; G0463